=== PATIENT | female | born 1965 | race American Indian/Alaskan Native ===

== ENCOUNTER 2017-10-30 13:04 | Outpatient (CLI) | payer OTHER ==
[2017-10-30] MEDS ORDERED: PROVENTIL IH ONE (15:13)
--- NOTE | 2017-11-01 04:34 | Pulmonary Function Test ---
SPIROMETRY: FVC 1.64 liters, which is 58% of predicted. FEV1 is 1.16 liters, which is 51% of the predicted. FEV1/FVC ratio is 71. FLOW VOLUME LOOP: FEF 25-75% is 0.76 liters per second, which is 33% of predicted. MVV is 66% of the predicted. LUNG VOLUMES: TLC 3.62, which is 71% of the predicted and the patient's DLCO is 70% of the predicted. IMPRESSION: 1. Mild restrictive ventilatory impairment as evidenced by decrease in TLC. 2. Early obstructive ventilatory impairment as evidenced by decrease in the FEF 25-75%. 3. Post-bronchodilators, there is a significant improvement in FEV1. JOB# [id number] DAVID/TIFFANIE
== END 2017-10-30 13:05 | disposition home or self-care (01) ==
LOC: PF 13:04
PROVIDERS: ATTEND Internal Medicine
DX: J45.20 Mild intermittent asthma, uncomplicated (principal)
CPT/HCPCS: 36600; 82803; 94060; 94726; 94729

== ENCOUNTER 2017-10-31 05:53 | Outpatient (CLI) | payer OTHER ==
[2017-10-31 06:43] LABS: Hematocrit 40.6 % (30.3-42.9); Hemoglobin 13.8 gm/dl (10.1-14.3); Mean Corpuscular HGB Conc 34 % (30-34); Mean Corpuscular Hemoglobin 30 pg (28-32); Mean Corpuscular Volume 89 fl (79-97); Platelet Count 171 K/mm3 (140-440); Red Blood Count 4.56 M/mm3 (3.65-5.03); Red Cell Distribution Width 13.7 % (13.2-15.2)
[2017-10-31 07:08] LABS: Alanine Aminotransferase 20 units/L (7-56); BUN/Creatinine Ratio 17; Blood Urea Nitrogen 12 mg/dL (7-17); Calcium 9.5 mg/dL (8.4-10.2); Chol/HDL Ratio 2.29 %; HDL Cholesterol 93 mg/dL (40-59); Hemolysis Index 10; LDL Cholesterol,Direct 121 mg/dL (50-130)
[2017-10-31 07:34] LABS: INR 0.91 (0.87-1.13); Partial Thromboplastin Time 27.2 Sec. (24.2-36.6)
== END 2017-10-31 05:54 | disposition home or self-care (01) ==
LOC: LAB 05:53
PROVIDERS: ATTEND Internal Medicine
DX: J45.20 Mild intermittent asthma, uncomplicated (principal)
CPT/HCPCS: 36415; 80053; 80061; 82785; 84436; 84443; 85027; 85610; 85730